=== PATIENT | female | born 1980 | race Hispanic/Latino ===

== ENCOUNTER 2021-08-28 17:12 | Emergency (ER) | payer OTHER, SELFPAY ==
[2021-08-28 17:27] VITALS: BP 126/98; PULSE 83; RESP 18; TEMP 36.5; O2SAT 100
--- NOTE | 2021-08-28 17:27 | ED.GENADULT ---
HPI - General Adult General Chief complaint: Unspecified Stated complaint: work note, covid test Time Seen by Provider: 08/28/21 17:25 History of Present Illness HPI narrative: 41-year-old female presents to the emergency room requesting a work note so she can return to work. Patient also complains of a left lower back pain, is worse with movement. 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 Denies saddle anesthesia. Patient also states that recently she has been experiencing upper respiratory symptoms, including a cough and runny nose and subjective fever. Review of Systems Review of Systems: CONSTITUTIONAL: Denies fever, chills, or sweats. EYES: Denies visual changes, redness, or discharge. ENT: Denies rhinorrhea, congestion, sore throat, or otalgia. CARDIOVASCULAR: Denies chest pain, palpitations, or edema. RESPIRATORY: Denies cough or dyspnea. GASTROINTESTINAL: Denies abdominal pain, nausea, vomiting, or diarrhea. GENITOURINARY: Denies dysuria or hematuria. SKIN: Denies rash or itching. MUSCULOSKELETAL: Denies back pain, joint pain, or myalgia. NEUROLOGIC: Denies headache, numbness, dizziness, or weakness. PSYCHIATRIC: Denies anxiety or depression. Exam Narrative: GENERAL: Well-appearing, well-nourished, and in no acute distress. HEAD: Normocephalic, atraumatic. EYES: PERRLA and EOMI. ENT: Nares clear, no rhinorrhea or epistaxis. Mucous membranes moist. Oropharynx without tonsillar hypertrophy exudate or other lesions. Bilateral TMs pearly marcus nonbulging CHEST: Clear to auscultation. No respiratory distress. No wheezes rales or rhonchi HEART: Regular rate and rhythm. No murmur heard. Normal peripheral pulses. ABDOMEN: Soft, nontender, nondistended, normal active bowel sounds. EXTREMITIES: Normal range of motion. No edema. Lumbar spine: Positive tenderness to the left thoracolumbar fascia. Pain with right lateral tilt and left rotation. No midline tenderness, no step-offs, no bony abnormality SKIN: Warm, dry, no rash. NEURO: No focal deficits. Alert and oriented x3. PSYCH: Normal mood and affect. Course Vital Signs Vital signs: Vital Signs Temperature 36.5 C 08/28/21 17:27 Pulse Rate 83 08/28/21 17:27 Respiratory Rate 18 08/28/21 17:27 Blood Pressure 126/98 H 08/28/21 17:27 Pulse Oximetry 100 08/28/21 17:27 Temperature 36.5 C 08/28/21 17:27 Pulse Rate 83 08/28/21 17:27 Respiratory Rate 18 08/28/21 17:27 Blood Pressure 126/98 H 08/28/21 17:27 Pulse Oximetry 100 08/28/21 17:27 Medical Decision Making Vital Signs Vital Signs: Vital Signs Temperature 36.5 C 08/28/21 17:27 Pulse Rate 83 08/28/21 17:27 Respiratory Rate 18 08/28/21 17:27 Blood Pressure 126/98 H 08/28/21 17:27 Pulse Oximetry 100 08/28/21 17:27 Temperature 36.5 C 08/28/21 17:27 Pulse Rate 83 08/28/21 17:27 Respiratory Rate 18 08/28/21 17:27 Blood Pressure 126/98 H 08/28/21 17:27 Pulse Oximetry 100 08/28/21 17:27 Discharge Plan Discharge Clinical Impression: Acute lumbar myofascial strain Patient Disposition: Home, Self-Care Condition: Stable Instructions: Antibiotic Form Follow-up/Referrals: PHYSICIAN,GRAILS WEB APPLICATION DEVELOPER [Primary Care Provider] - Stand Alone Forms: Work/School Release IP Time of Disposition: 17:28
[2021-08-28 19:45] VITALS: BP 139/95; PULSE 71; RESP 18; TEMP 36.4; O2SAT 100
[2021-08-28 19:50] LABS: Influenza A QL RT-PCR Negative (Negative); Influenza B QL RT-PCR Negative (Negative); SARS-CoV-2 RNA PCR Negative
== END 2021-08-28 19:45 | disposition home or self-care (01) ==
LOC: ANHED 19:25
PROVIDERS: Emergency Provider Nurse Practitioner Family
DX: S39.012A Strain of muscle, fascia and tendon of lower back, initial encounter (principal); Z20.822 Contact with and (suspected) exposure to COVID-19; X50.0XXA Overexertion from strenuous movement or load, initial encounter
CPT/HCPCS: 87502; 99283; C9803; U0003; U0005

== ENCOUNTER 2021-09-07 13:28 | Emergency (ER) | payer OTHER, SELFPAY ==
--- NOTE | ~2021-09-07 | XR_ITS ---
EXAMINATION: XR lumbar spine 2-3V DATE: 09/07/2021 15:50 INDICATION: Low back pain TECHNIQUE: Anteroposterior and lateral views of the lumbar spine, and cone-down lateral view of the l umbosacral junction were obtained. COMPARISON: None. FINDINGS: There are 2 mm of retrolisthesis of L5 on S1. There is mild loss of intervertebral disc spa ce height at L5-S1. No fractures identified. The vertebral body heights are maintained. Small degener ative osteophytes project from the anterior endplates of multiple vertebral bodies. IMPRESSION: 1. Mild lumbar spondylosis without acute findings. Reviewed, dictated and finalized at location F.
--- NOTE | ~2021-09-07 | XR_ITS ---
EXAMINATION: XR thoracic spine 3V DATE: 09/07/2021 15:51 INDICATION: Thoracic back pain TECHNIQUE: AP, lateral and lateral swimmer's views of the thoracic spine were obtained. COMPARISON: None. FINDINGS: There is no fracture, dislocation, or subluxation. The vertebral body heights, alignment, a nd intervertebral disc spaces are normal. The paravertebral soft tissues are unremarkable. IMPRESSION: 1. No acute osseous abnormality. Reviewed, dictated and finalized at location F.
[2021-09-07 14:41] VITALS: BP 146/85; PULSE 89; RESP 17; TEMP 36.3; O2SAT 100
--- NOTE | 2021-09-07 15:12 | PC.NURSE ---
patient has been taking robaxin po without relief
[2021-09-07] MEDS: KETOROLAC (*BKC) 60 MG/2 ML VIAL IM (15:49)
[2021-09-07] MEDS: diazePAM (*CRX) 2 MG TABLET PO (15:50)
--- NOTE | 2021-09-07 17:08 | ED.BACK ---
HPI - Back Pain/Injury General Chief Complaint: Back Pain/Injury Stated Complaint: back pain from work injury Time Seen by Provider: 09/07/21 15:14 History of Present Illness HPI Narrative: Patient is a 41-year-old female who presents ER with mid back pain. Occurred yesterday at work while lifting some trash. Has increased in intensity since then. No improvement with methocarbamol. Worse with going from sitting to standing. Has some discomfort that does radiate down her left leg. No difficulty with urination/defecation. No saddle anesthesia. Related Data Allergies Allergy/AdvReac Type Severity Reaction Status Date / Time No Known Allergies Allergy Verified 09/07/21 15:11 Review of Systems Constitutional: Constitutional: Denies chills, Denies fever(s) and Denies weakness Gastrointestinal: Gastrointestinal: Denies nausea and Denies vomiting Genitourinary: Genitourinary: Denies nocturia and Denies flank pain Comments: No urinary or fecal incontinence. Musculoskeletal: Musculoskeletal: Reports back pain, Denies arthralgias and Denies joint swelling Neurologic: Denies headache(s), Denies focal weakness and Denies numbness PMFSH Past Medical History Medical History (Updated 09/07/21 @ 17:12 by Ren Ramires MD) Healthy female adult Surgical History Surgical History (Updated 09/07/21 @ 17:09 by Ren Ramires MD) No pertinent past surgical history Exam Narrative: GENERAL: Well-appearing, well-nourished, and in no acute distress. HEAD: Normocephalic, atraumatic. CHEST: Clear to auscultation. No respiratory distress. HEART: Regular rate and rhythm. Normal peripheral pulses. Back: Mild midline tenderness around T10. There is increased paraspinal muscular tenderness bilaterally T10 down to L2 level. EXTREMITIES: Normal range of motion. No edema. SKIN: Warm, dry, no rash. NEURO: Alert and oriented x3. PSYCH: Normal mood and affect. Course Course Emergency Course: Patient informed of results. Discharge home. Vital Signs Vital signs: Vital Signs Temperature 97.4 F L 09/07/21 14:41 Pulse Rate 89 09/07/21 14:41 Respiratory Rate 17 09/07/21 14:41 Blood Pressure 146/85 H 09/07/21 14:41 Pulse Oximetry 100 09/07/21 14:41 Temperature 97.4 F L 09/07/21 14:41 Pulse Rate 89 09/07/21 14:41 Respiratory Rate 17 09/07/21 14:41 Blood Pressure 146/85 H 09/07/21 14:41 Pulse Oximetry 100 09/07/21 14:41 MDM - Back Pain/Injury Imaging Data Radiologist's impression: ITS Impressions Lumbar Spine X-Ray 09/07/21 16:04 IMPRESSION: 1. Mild lumbar spondylosis without acute findings. Thoracic Spine X-Ray 09/07/21 16:13 IMPRESSION: 1. No acute osseous abnormality. Discharge Plan Discharge Clinical Impression: Back strain Patient Disposition: Home, Self-Care Condition: Stable Instructions: Thoracic Back Strain (ED) Additional Instructions: Return to the ER if you have increased pain in your back, you develop lower extremity weakness/numbness/paralysis, you have numbness or tingling in your private parts, or you are unable to control your ability to urinate/stool. Prescriptions: New cyclobenzaprine 10 mg tablet 10 mg PO TID PRN (Reason: muscle spasm) Qty: 20 RF: 0 naproxen 375 mg tablet 375 mg PO BID Qty: 14 RF: 0 No Action methocarbamol 500 mg tablet 500 mg PO TID Qty: 14 RF: 0 Follow-up/Referrals: PHYSICIAN,ENVIRONMENTAL LAW PROFESSOR [Primary Care Provider] - Wisam Fitzgerald MD [Physician] - 1 Week
[2021-09-07 17:18] VITALS: BP 133/78; PULSE 74; RESP 16; TEMP 36.8; O2SAT 98
== END 2021-09-07 17:20 | disposition home or self-care (01) ==
PROVIDERS: Emergency Provider Emergency Medicine
DX: S29.012A Strain of muscle and tendon of back wall of thorax, initial encounter (principal); M47.816 Spondylosis without myelopathy or radiculopathy, lumbar region; X50.0XXA Overexertion from strenuous movement or load, initial encounter
CPT/HCPCS: 72072; 72100; 96372; 99283; A9270; J1885

== ENCOUNTER 2021-10-11 17:14 | Emergency (ER) | payer OTHER, SELFPAY ==
--- NOTE | ~2021-10-11 | CT_ITS ---
EXAMINATION: CT brain wo con INDICATION: Headache COMPARISON: None TECHNIQUE: Standard unenhanced head CT. The dose-length product (DLP) was 605.33 mGy-cm. The mA was a djusted according to patient size. Iterative reconstruction technique was employed. FINDINGS: There is no intracranial hemorrhage, acute infarction, or abnormal mass lesion. The ventric les are normal. There is no abnormal mass effect or midline shift. The marcus-white matter differentiat ion is normal. The basal cisterns are patent. The orbits are normal. The paranasal sinuses, mastoids and calvarium are normal. IMPRESSION: 1. No acute intracranial abnormality. Reviewed, dictated and finalized at location F.
--- NOTE | ~2021-10-11 | CT_ITS ---
EXAMINATION: CT facial bones wo con DATE: 10/11/2021 18:14 INDICATION: Facial pain TECHNIQUE: Computed tomography (CT) of the facial bones and maxillofacial region was performed withou t intravenous contrast. The dose-length product (DLP) was 372.71 mGy-cm. Automated exposure control a nd iterative reconstruction technique were employed. COMPARISON: None. FINDINGS: No facial fracture is identified. The soft tissues are unremarkable. There is mild mucosal thickening of the paranasal sinuses. There are multiple dental caries. IMPRESSION: 1. No facial fracture identified. Reviewed, dictated and finalized at location F.
[2021-10-11 17:45] VITALS: BP 164/90; PULSE 109; RESP 16; TEMP 36.7; O2SAT 100
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
[2021-10-11] MEDS: IBUPROFEN 600 MG TABLET PO (18:17)
== END 2021-10-11 19:01 | disposition home or self-care (01) ==
PROVIDERS: Emergency Provider Emergency Medicine
DX: S00.83XA Contusion of other part of head, initial encounter (principal); Y00.XXXA Assault by blunt object, initial encounter
CPT/HCPCS: 70450; 70486; 99284; A9270

== ENCOUNTER 2022-01-30 17:04 | Emergency (ER) | payer OTHER, SELFPAY ==
--- NOTE | ~2022-01-30 | XR_ITS ---
EXAM: XR knee RT min 4V DATE: 01/30/2022 19:45 HISTORY: right knee pain, injury, RECENT FALL, PAIN WITH MOVEMENT . COMPARISON: None available. FINDINGS: Normal mineralization. No fracture or dislocation. No lytic or blastic lesion. Joint space s are maintained. No erosion or periosteal change. Soft tissues within normal limits. IMPRESSION: No acute osseous finding in the right knee. Reviewed, dictated and finalized at location K.
--- NOTE | ~2022-01-30 | XR_ITS ---
EXAM: XR lumbar spine 2-3V DATE: 01/30/2022 19:45 HISTORY: low back pain, RECENT FALL, PAIN WITH MOVEMENT . COMPARISON: 08/30/2021. FINDINGS: Lumbar scoliosis. 5 nonrib-bearing lumbar-type vertebral bodies. Pedicles intact. 2 mm retr olisthesis of L5 on S1, unchanged. Vertebral body heights preserved. Mild disc space narrowing at L3- 4. Mild marginal osteophytosis at all lumbar levels. Mild sclerosis and hypertrophy in the mid and lo wer lumbar facets. No fracture or dislocation. IMPRESSION: No acute fracture or traumatic malalignment detected in the lumbar spine. Reviewed, dictated and finalized at location K.
--- NOTE | ~2022-01-30 | XR_ITS ---
EXAM: XR wrist RT min 3V DATE: 01/30/2022 19:45 HISTORY: right wrist pain, injury, RECENT FALL PAIN WITH MOVEMENT . COMPARISON: None available. FINDINGS: Normal mineralization. No fracture or dislocation. No lytic or blastic lesion. Joint space s are maintained. No erosion or periosteal change. Soft tissues within normal limits. IMPRESSION: No acute osseous finding in the right wrist. Reviewed, dictated and finalized at location K.
--- NOTE | ~2022-01-30 | XR_ITS ---
EXAM: XR shoulder RT min 2V DATE: 01/30/2022 19:46 HISTORY: right shoulder pain, injury, RECENT FALL, PAIN WITH MOVEMENT . COMPARISON: None available. FINDINGS: Normal mineralization. No fracture or dislocation. No lytic or blastic lesion. Mild AC licha nt hypertrophy. No erosion or periosteal change. Soft tissues within normal limits. IMPRESSION: No acute osseous finding in the right shoulder. Reviewed, dictated and finalized at location K.
--- NOTE | ~2022-01-30 | XR_ITS ---
EXAM: XR elbow RT min 3V DATE: 01/30/2022 19:45 HISTORY: right elbow pain, injury, RECENT FALL, PAIN WITH MOVEMENT . COMPARISON: None available. FINDINGS: Normal mineralization. No fracture or dislocation. No lytic or blastic lesion. Joint space s are maintained. No erosion or periosteal change. Soft tissues within normal limits. IMPRESSION: No acute osseous finding in the right elbow. Reviewed, dictated and finalized at location K.
[2022-01-30 17:21] VITALS: BP 128/71; PULSE 73; RESP 18; TEMP 36.7; O2SAT 97
[2022-01-30] MEDS: ACETAMINOPHEN 500 MG TABLET 1000 MG PO (19:13)
--- NOTE | 2022-01-30 19:18 | ED.EXTPRO ---
HPI - Extremity Problem General Chief complaint: Extremity Problem,Nontraumatic Stated complaint: PAIN AFTER LIFTING HEAVY BOX AT WORK Time Seen by Provider: 01/30/22 18:31 Source: patient Mode of arrival: ambulatory Limitations: language barrier (Using [employer] magnetic prospector) History of Present Illness HPI Narrative: This is a 41-year-old female that presents to the emergency department after lifting injuries at work. Reports she has to do a lot of heavy lifting at work. She also had a ground-level fall. Reports she fell onto her bottom. She did not hit her head or lose consciousness. Since working these last couple of days she has noted right shoulder pain and right elbow pain from lifting. She also reports pain in her lower back and right knee after falling. Pain is worse with movement and relieved with rest. Reports she is feeling some tingling in her right hand. Denies numbness or weakness. Related Data Allergies Allergy/AdvReac Type Severity Reaction Status Date / Time No Known Allergies Allergy Verified 01/30/22 19:06 Review of Systems Review of Systems: CONSTITUTIONAL: Denies fever SKIN: Denies rash MUSCULOSKELETAL: Reports back pain, joint pain, and myalgia. NEUROLOGIC: Denies numbness, or weakness. All systems reviewed & are unremarkable except as noted in HPI and below PMFSH Past Medical History Medical History (Updated 01/30/22 @ 21:36 by Ananya Eaton PA-C) Healthy female adult Patient denies significant medical history Surgical History Surgical History (Updated 01/30/22 @ 19:20 by Ananya Eaton PA-C) History of Social History Social History (Updated 10/11/21 @ 18:03 by Eliseo Roy DO) Smoking status: Never smoker Exam Narrative: GENERAL: Well-appearing, well-nourished, and in no acute distress. HEAD: Normocephalic, atraumatic. EYES: EOMI. CHEST: Clear to auscultation. No respiratory distress. No wheezes rales or rhonchi HEART: Regular rate and rhythm. No murmur heard. Normal peripheral pulses. BACK: No midline spinal tenderness EXTREMITIES: Normal range of motion. No edema or obvious deformity. Normal radial pulses. Strength equal in bilateral upper and lower extremities (5/5) SKIN: Warm, dry, no rash. NEURO: No focal deficits. Alert and oriented x3. PSYCH: Normal mood and affect Course Vital Signs Vital signs: Vital Signs Temperature 98.1 F 01/30/22 17:21 Pulse Rate 73 01/30/22 17:21 Respiratory Rate 18 01/30/22 17:21 Blood Pressure 128/71 01/30/22 17:21 Pulse Oximetry 97 01/30/22 17:21 Oxygen Delivery Room Air 01/30/22 17:21 Temperature 98.1 F 01/30/22 17:21 Pulse Rate 73 01/30/22 17:21 Respiratory Rate 18 01/30/22 17:21 Blood Pressure 128/71 01/30/22 17:21 Pulse Oximetry 97 01/30/22 17:21 Oxygen Delivery Room Air 01/30/22 17:21 MDM - Extremity (Nontraumatic) MDM Narrative Medical decision making narrative: Patient presents to the emergency department after an injury at work with multiple musculoskeletal complaints. Patient's vitals are normal. She is neurovascularly intact. X-rays of the right shoulder, elbow and wrist are without acute osseous abnormalities. X-rays of the lumbar spine and right knee are also without acute osseous abnormalities. Patient instructed to rest, ice and take [id number] pain medication as needed. Will be prescribed muscle relaxer as needed for pain. She is to follow-up with primary care doctor. She was given warnings to return to the ER Lab Data Attestation: I reviewed the patient's lab results. Labs: UCG Bedside Result Negative Reference Range: Negative Imaging Data Radiologist's impression: ITS Impressions Shoulder X-Ray 01/30/22 20:02 IMPRESSION: No acute osseous finding in the right shoulder. Wrist X-Ray 01/30/22 20:02 IMPRESSION: No acute osseous finding in the right w
--- NOTE | 2022-02-07 17:05 | PCCCNOTE ---
Addendum entered by Patricia Huitron RN 02/07/22 17:25: Fax'd facesheet and ER note to Dr. Sprague's office as requested -[phone] Original Note: Called by ER to assist patient as she is unable to make a follow up appointment with Dr. Sprague and she does not want to be re-evaluated in the ED. Met with patient is the ED waiting room, Utilized [id number] for [employer] with Vidal ID [id number]. Patient has discharge paperwork written in [employer] and was referred for hospital follow up with Dr. Sprague, patient states that she has called multiple times but no one answers and she does understand any Maltese for the prompts. Advised that this director critical care could assist with making the appointment or she could be re-evaluated. She is agreeable for help making the follow up appointment. Called to Dr. Sprague's office at and spoke with Ginger, advised that the patient's need a hospital follow up appt, makes appt for Saturday02/13/22 at 1110 am. Patient through college instructor agrees with the appointment time. Asked Ginger where their office is located as difficult for the patient to find. She states that from the back of hospital ER entrance, the patient should turn right and it is the 2nd building on the right. Ginger requests that this director critical care send facesheet and discharge paperwork to [phone]. Reiterated to Ginger that patient would need a state comptroller through a language line as the only person that speaks yi and estonian in her family is her son who is 8. Wrote down the appointment date and time as February 13, 2022 at 11:10 per recommendation of college instructor Carlos. Patient read back the appointment to college instructor to confirm understanding. Advised to patient if anything changes or worsens she can come back to the ER. Patient verbalized understanding and grateful for the help. Closed the stratus line call with Vidal.
== END 2022-01-30 21:49 | disposition home or self-care (01) ==
PROVIDERS: Emergency Provider Emergency Medicine
DX: M54.50 Low back pain, unspecified (principal); M25.511 Pain in right shoulder; X50.0XXA Overexertion from strenuous movement or load, initial encounter
CPT/HCPCS: 72100; 73030; 73080; 73110; 73564; 99284; A9270